=== PATIENT | male | born 1995 ===

== ENCOUNTER 2017-06-23 22:23 | Emergency (ER) | payer MEDICAID ==
[~2017-06-23] VITALS: Ht 177.8 cm; Wt 68.0 kg
[2017-06-23 22:25] VITALS: BP 138/65; PULSE 88; RESP 16; TEMP 98.4; O2SAT 99
== END 2017-06-24 00:05 | disposition left against medical advice (07) ==
LOC: NED 22:23
DX: R68.84 Jaw pain (principal); Z53.21 Procedure and treatment not carried out due to patient leaving prior to being seen by health care provider